=== PATIENT | male | born 1975 | race African-American/Black ===

== ENCOUNTER 2017-11-22 05:10 | Emergency (ER) | payer SELFPAY ==
[~2017-11-22] VITALS: Ht 170.2 cm; Wt 68.0 kg
[~2017-11-22 05:10] MED LIST: AMOX500C2 PO; NAPR-243 PO; PREDNISONE; TRM50T PO; VALA500T4 PO
[2017-11-22 05:15] VITALS: BP 141/109
--- NOTE | 2017-11-22 06:31 | ED Respiratory ---
General Chief Complaint: Chest Pain Stated Complaint: SOB Nursing Triage Note: pt brought in to er with friend with complaint of chest pain and sob. that started an hour ago. states he was drinking and smoking tonight. Source: patient, family (cousin) Exam Limitations: intoxication History of Present Illness Date Seen by Provider: Nov 22, 2017 Time Seen by Provider: 05:10 Initial Comments Patient presents to the ER by private conveyance with his cousin and a chief complaint that about an hour and a half ago he came home and his cousin's house was complaining of being short of breath having tingling in his face and hands and pain in his chest/upper belly. The patient denies any history of coronary artery disease in either himself or primary family. He does smoke cigarettes. He was evasive about answering how much he drinks but he says he did drink some liquor and at least a sixpack of beer tonight. Patient was becoming uncooperative with questioning as well as examination and just wanted lay on his left side. Patient's cousin became upset patient because he was not answering questions at all. This examiner asked the patient we could at least collect blood and urine and get an x-ray to help figure out what was wrong and as well as offer him some management of his symptoms and the patient refused to answer make eye contact. The patient's cousin became upset with the patient and insisted that he either cooperate with care or she was going to drag him out of the ER and take him to his mother and have her bring him back. The patient then ceased communicating and cooperating entirely so family member collected the patient's things and helped him up and proceeded to March him out of the ER. Allergies and Home Medications Allergies Coded Allergies: No Known Drug Allergies (Unverified Allergy, Mild, 12/10/08) No Known Allergies (Verified Allergy, Unknown, 11/23/06) Patient Home Medication List Home Medication List Reviewed: Yes Constitutional: see HPI (a complete review of systems was not able to be collected.) Past Ybyvexr-Eklcpi-Yhnuuv Hx Patient Social History Alcohol Use: Regular Use Alcohol Beverage of Choice: Beer, Whiskey Recreational Drug Use: No Smoking Status: Current Everyday Smoker Type Used: Cigarettes Recent Foreign Travel: No Contact w/Someone Who Travel: No Recent Infectious Disease Expo: No Reproductive System Hx Reproductive Disorders: No Sexually Transmitted Disease: No Physical Exam Vital Signs Vital Signs - First Documented 11/22/17 05:15 Temp 96.4 Pulse 89 Resp 20 B/P (MAP) 141/109 (120) Pulse Ox 100 O2 Delivery Room Air Capillary Refill : Less Than 3 Seconds General Appearance: WD/WN Eyes: Bilateral Eye Normal Inspection, Bilateral Eye PERRL, Bilateral Eye EOMI HEENT: pharynx normal (oropharynx is dry), other (erythematous and injected conjunctiva bilateral) Neck: non-tender, supple, normal inspection Respiratory: chest non-tender, lungs clear, normal breath sounds, no respiratory distress, no accessory muscle use Cardiovascular: normal peripheral pulses, regular rate, rhythm, no edema Gastrointestinal: normal bowel sounds, non tender, soft, no organomegaly Extremities: non-tender, normal inspection, normal capillary refill Neurologic/Psychiatric: alert, other (oriented to person and place; anxious affect;) Skin: normal color, warm/dry Progress/Results/Core Measures Suspected Sepsis Recent Fever Within 48 Hours: No Infection Criteria Present: None New/Unexplained Altered Menta: No Sepsis Screen: No Definite Risk Sepsis Diagnosis: SIRS Temperature:96.4 Pulse: 89 Respiratory Rate: 20 Blood Pressure 141 /109 Mean: 120 Results/Orders Vital Signs/I&O Vital Sign - Last 12Hours 11/22/17 05:15 Temp 96.4 Pulse 89 Resp 20 B/P (MAP) 141/109 (120) Pulse Ox 100 O2 Delivery Room Air Capillary Refill : Less Than 3 Seconds Blood Pressure Mean: 120 Departure Impression Impression: Primary Impression: Alcohol intoxication Qualified Codes: F10.929 - Alcohol use, unspecified with intoxication, unspecified Additional Impressions: Anxiety Shortness of breath Disposition: 07 AGAINST MEDICAL ADVICE Condition: Against Medical Advice Departure-Patient Inst. Decision time for Depature: 06:35 Referrals: SURESH BERNABE MD (PCP) Primary Care Physician Patient Instructions: Anxiety, Adult (DC) Add. Discharge Instructions: All discharge instructions reviewed with patient and/or family. Voiced understanding. DAVINA YANEZ Nov 22, 2017 06:31
== END 2017-11-22 05:25 | disposition left against medical advice (07) ==
LOC: EDUNIT# 05:10 → ER 05:11
DX: R06.02 Shortness of breath (principal); F10.129 Alcohol abuse with intoxication, unspecified; F41.9 Anxiety disorder, unspecified; F17.210 Nicotine dependence, cigarettes, uncomplicated
CPT/HCPCS: 99281

== ENCOUNTER 2017-11-22 05:54 | Emergency (ER) | payer SELFPAY ==
[~2017-11-22] VITALS: Ht 170.2 cm; Wt 68.0 kg
[2017-11-22] MEDS ORDERED: NS IV 1000 ML 1,000 ML IV SCH (06:18)
[2017-11-22 06:32] LABS: BILIRUBIN,URINE NEGATIVE (NEGATIVE); CLARITY,URINE CLEAR; COLOR,URINE YELLOW; GLUCOSE, URINE (UA) NEGATIVE (NEGATIVE); KETONES,URINE NEGATIVE (NEGATIVE); LEUKOCYTE ESTERASE ,URINE NEGATIVE (NEGATIVE); NITRITE,URINE NEGATIVE (NEGATIVE); PH,URINE 7 (5-9); PROTEIN,URINE NEGATIVE (NEGATIVE); UROBILINOGEN,URINE NORMAL (NORMAL)
[2017-11-22 06:34] LABS: HEMATOCRIT 45 % (40-54); HEMOGLOBIN 15.2 G/DL (13.3-17.7); LYMPHOCYTES % (AUTO) 56 % (12-44); MEAN CORPUSCULAR HEMOGLOBIN 30 PG (25-34); MEAN CORPUSCULAR HGB CONC 34 G/DL (32-36); MEAN CORPUSCULAR VOLUME 89 FL (80-99); NEUTROPHILS % (AUTO) 31 % (42-75); PLATELET COUNT 202 10^3/uL (130-400); RED BLOOD COUNT 5.03 10^6/uL (4.35-5.85); RED CELL DISTRIBUTION WIDTH 13.5 % (10.0-14.5); WHITE BLOOD COUNT 4.6 10^3/uL (4.3-11.0)
[2017-11-22 06:35] LABS: BASOPHILS % (AUTO) 0 % (0-10); EOSINOPHILS # (AUTO) 0.2 10^3/uL (0.0-0.3); EOSINOPHILS % (AUTO) 5 % (0-10); LYMPHOCYTES # (AUTO) 2.6 X 10^3 (1.0-4.0); MONOCYTES # (AUTO) 0.4 X 10^3 (0.0-1.0); MONOCYTES % (AUTO) 9 % (0-12); NEUTROPHILS # (AUTO) 1.4 X 10^3 (1.8-7.8)
[2017-11-22 06:38] LABS: BACTERIA,URINE NEGATIVE /HPF; SQUAMOUS EPITHELIAL CELL,UR RARE /HPF
--- NOTE | 2017-11-22 06:55 | ED General ---
General Chief Complaint: Respiratory Problems Stated Complaint: SOB Nursing Triage Note: Patient reports that he is having SOA. patient also reports that he is having a weird feeling that is not pain in his epigastric region. Patient states it is hard to describe. Patient reports to drinking alcohol but denies using or doing anything else. Nursing Sepsis Screen: No Definite Risk Source of Information: Patient, Old Records Exam Limitations: Intoxication History of Present Illness Date Seen by Provider: Nov 22, 2017 Time Seen by Provider: 06:08 Initial Comments This 42-year-old man presents to the emergency room with primary complaint of shortness of breath. He is kneeling on the floor upon my entry into the exam room. I inquired why he was on the floor and he stated position changes help him breathe better. He appears heavily intoxicated with watery erythematous eyes and dulled cognition. He is ambulatory. He had checked into the emergency room earlier in the evening for epigastric pain but left AGAINST MEDICAL ADVICE before he was completely evaluated. He had mentioned to nursing staff during the prior visit and on triage that he had epigastric pain, but his only complaint to me is shortness of breath. He admits to drinking a large quantity of alcohol but denies any drug use. He states that shortness of breath started about 6 hours ago. He is denying any pain at this time. Review of chart notes patient does have a history of drug and alcohol abuse including an overdose requiring intubation and ICU admission in 2006. Allergies and Home Medications Allergies Coded Allergies: No Known Drug Allergies (Unverified Allergy, Mild, 12/10/08) No Known Allergies (Verified Allergy, Unknown, 11/23/06) Patient Home Medication List Home Medication List Reviewed: Yes Constitutional: see HPI EENTM: no symptoms reported Respiratory: see HPI Cardiovascular: no symptoms reported Gastrointestinal: see HPI Genitourinary: no symptoms reported Musculoskeletal: no symptoms reported Skin: no symptoms reported Psychiatric/Neurological: See HPI Hematologic/Lymphatic: No Symptoms Reported Immunological/Allergic: no symptoms reported Past Upxfhfe-Fcabfy-Xhpvpt Hx Patient Social History Alcohol Use: Regular Use Recreational Drug Use: No Smoking Status: Never a Smoker Recent Foreign Travel: No Contact w/Someone Who Travel: No Recent Infectious Disease Expo: No Physical Abuse: No Sexual Abuse: No Surgeries History of Surgeries: No Respiratory History of Respiratory Disorde: No Cardiovascular History of Cardiac Disorders: No Neurological History of Neurological Disord: No Reproductive System Hx Reproductive Disorders: No Sexually Transmitted Disease: No Gastrointestinal History of Gastrointestinal Di: No Musculoskeletal History of Musculoskeletal Dis: No Endocrine History of Endocrine Disorders: No HEENT History of HEENT Disorders: No Cancer History of Cancer: No Psychosocial History of Psychiatric Problem: No Suicide Risk Score: 0 Integumentary History of Skin or Integumenta: No Blood Transfusions History of Blood Disorders: No Physical Exam Vital Signs Vital Signs - First Documented 11/22/17 11/22/17 06:30 07:35 Temp 98.2 Pulse 80 Resp 18 B/P (MAP) 142/102 (115) Pulse Ox 96 O2 Delivery Nasal Cannula O2 Flow Rate 2.00 Capillary Refill : Less Than 3 Seconds General Appearance: No Apparent Distress, WD/WN, Other (intoxicated) HEENT: PERRL/EOMI, Normal ENT Inspection, Moist Mucous Membranes, Other ( watery bloodshot eyes.) Neck: Normal Inspection Respiratory: Lungs Clear, Normal Breath Sounds, No Accessory Muscle Use, No Respiratory Distress Cardiovascular: Regular Rate, Rhythm, No Edema, No Murmur Gastrointestinal: Normal Bowel Sounds, Non Tender, Soft Extremity: Normal Inspection, No Pedal Edema Neurologic/Psychiatric: Alert, No Motor/Sensory Deficits, mat 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 Patient appears intoxicated) Skin: Normal Color, Warm/Dry Progress/Results/Core Measures Suspected Sepsis Recent Fever Within 48 Hours: No Infection Criteria Present: None New/Unexplained Altered Menta: No Sepsis Screen: No Definite Risk Sepsis Diagnosis: SIRS Temperature:98.2 Pulse: 80 Respiratory Rate: 18 Laboratory Tests 11/22/17 06:10: White Blood Count 4.6 Blood Pressure 142 /102 Mean: 115 Laboratory Tests 11/22/17 06:10: Creatinine 0.76, Platelet Count 202, Total Bilirubin 0.6 Results/Orders Lab Results Laboratory Tests Test 11/22/17 06:10 11/22/17 06:20 Range/Units White Blood Count 4.6 4.3-11.0 10^3/uL Red Blood Count 5.03 4.35-5.85 10^6/uL Hemoglobin 15.2 13.3-17.7 G/DL Hematocrit 45 40-54 % Mean Corpuscular Volume 89 80-99 FL Mean Corpuscular Hemoglobin 30 25-34 PG Mean Corpuscular Hemoglobin Concent 34 32-36 G/DL Red Cell Distribution Width 13.5 10.0-14.5 % Platelet Count 202 130-400 10^3/uL Mean Platelet Volume 9.0 7.4-10.4 FL Neutrophils (%) (Auto) 31 L 42-75 % Lymphocytes (%) (Auto) 56 H 12-44 % Monocytes (%) (Auto) 9 0-12 % Eosinophils (%) (Auto) 5 0-10 % Basophils (%) (Auto) 0 0-10 % Neutrophils # (Auto) 1.4 L 1.8-7.8 X 10^3 Lymphocytes # (Auto) 2.6 1.0-4.0 X 10^3 Monocytes # (Auto) 0.4 0.0-1.0 X 10^3 Eosinophils # (Auto) 0.2 0.0-0.3 10^3/uL Basophils # (Auto) 0.0 0.0-0.1 10^3/uL Sodium Level 143 135-145 MMOL/L Potassium Level 4.0 3.6-5.0 MMOL/L Chloride Level 104 98-107 MMOL/L Carbon Dioxide Level 24 21-32 MMOL/L Anion Gap 15 H 5-14 MMOL/L Blood Urea Nitrogen 9 7-18 MG/DL Creatinine 0.76 0.60-1.30 MG/DL Estimat Glomerular Filtration Rate > 60 BUN/Creatinine Ratio 12 Glucose Level 94 70-105 MG/DL Calcium Level 9.1 8.5-10.1 MG/DL Magnesium Level 2.4 1.8-2.4 MG/DL Total Bilirubin 0.6 0.1-1.0 MG/DL Aspartate Amino Transf (AST/SGOT) 50 H 5-34 U/L Alanine Aminotransferase (ALT/SGPT) 50 0-55 U/L Alkaline Phosphatase 88 40-136 U/L Troponin I < 0.30 <0.30 NG/ML Total Protein 7.8 6.4-8.2 GM/DL Albumin 4.6 H 3.2-4.5 GM/DL Lipase 68 8-78 U/L Serum Alcohol 351 *H <10 MG/DL Urine Color YELLOW Urine Clarity CLEAR Urine pH 7 5-9 Urine Specific Taylor 1.010 L 1.016-1.022 Urine Protein NEGATIVE NEGATIVE Urine Glucose (UA) NEGATIVE NEGATIVE Urine Ketones NEGATIVE NEGATIVE Urine Nitrite NEGATIVE NEGATIVE Urine Bilirubin NEGATIVE NEGATIVE Urine Urobilinogen NORMAL NORMAL MG/DL Urine Leukocyte Esterase NEGATIVE NEGATIVE Urine RBC (Auto) NEGATIVE NEGATIVE Urine RBC NONE /HPF Urine WBC NONE /HPF Urine Squamous Epithelial Cells RARE /HPF Urine Crystals NONE /LPF Urine Bacteria NEGATIVE /HPF Urine Casts NONE /LPF Urine Mucus NEGATIVE /LPF Urine Culture Indicated NO Urine Opiates Screen NEGATIVE NEGATIVE Urine Oxycodone Screen NEGATIVE NEGATIVE Urine Methadone Screen NEGATIVE NEGATIVE Urine Propoxyphene Screen NEGATIVE NEGATIVE Urine Barbiturates Screen NEGATIVE NEGATIVE Ur Tricyclic Antidepressants Screen NEGATIVE NEGATIVE Urine Phencyclidine Screen NEGATIVE NEGATIVE Urine Amphetamines Screen NEGATIVE NEGATIVE Urine Methamphetamines Screen NEGATIVE NEGATIVE Urine Benzodiazepines Screen NEGATIVE NEGATIVE Urine Cocaine Screen NEGATIVE NEGATIVE Urine Cannabinoids Screen NEGATIVE NEGATIVE My Orders Orders - GREG VERDUGO MD Alcohol (11/22/17 06:18) Cbc With Automated Diff (11/22/17 06:18) Comprehensive Metabolic Panel (11/22/17 06:18) Drug Screen Stat (Urine) (11/22/17 06:18) Lipase (11/22/17 06:18) Magnesium (11/22/17 06:18) Troponin I (11/22/17 06:18) Ua Culture If Indicated (11/22/17 06:18) Chest 1 View, Ap/Pa Only (11/22/17 06:18) Saline Lock/Iv-Start (11/22/17 06:18) Ns Iv 1000 Ml (Sodium Chloride 0.9%) (11/22/17 06:18) Ekg Tracing (11/22/17 14:32) Vital Signs/I&O Vital Sign - Last 12Hours 11/22/17 11/22/17 11/22/17 06:30 07:35 09:45 Temp 98.2 98.6 Pulse 80 90 Resp 18 18 B/P (MAP) 142/102 (115) 136/84 Pulse Ox 96 90 96 O2 Delivery Nasal Cannula Room Air O2 Flow Rate 2.00 Capillary Refill : Less Than 3 Seconds Blood Pressure Mean: 115 Progress Note #1: Time: 06:49 Progress Note Patient seen and examined. X-ray, EKG, and labs ordered. Liter of IV fluids is infusing. Progress Note #2: Progress Note Workup was relatively unremarkable except for the elevated blood alcohol level. Patient was allowed to sleep off his intoxication. When he was woken, his symptoms had resolved. He was independently and safely ambulatory. He was discharged home with family. He was given information for local substance abuse treatment programming. ECG Initial ECG Impression Date: Nov 22, 2017 Initial ECG Impression Time: 06:00 Initial ECG Rate: 77 Initial ECG Rhythm: Normal Sinus Initial ECG Intervals: Normal Initial ECG Impression: Normal Comment Normal sinus rhythm with no ST elevation or depression. No abnormal intervals or axis deviation. Diagnostic Imaging Diagonstic Imaging: Xray Plain Films/CT/US/NM/MRI: chest Comments Chest x-ray viewed by me. Report reviewed. See report below: NAME: YOHANA BASILIO [facility] REC#: [id number] PT STATUS: REG ER : 1975 PHYSICIAN: GREG VERDUGO MD ADMIT DATE: 11/22/17/ER Signed Date of Exam: 11/22/17 CHEST 1 VIEW, AP/PA ONLY INDICATION: ER patient with shortness of breath. FINDINGS: Portable chest. Lungs are clear. Heart is not enlarged. There is no pulmonary edema or hilar adenopathy. No pneumothorax or pleural effusions. No bony abnormalities. IMPRESSION: Normal portable chest. Dictated by: Dictated on workstation # [id number] Dict: 11/22/17730 Trans: 11/22/17926 Interpreted by: ONESIMO CARDONA MD Electronically signed by: ONESIMO CARDONA MD 11/22/17926 Departure Impression Impression: Primary Impression: Alcohol intoxication Qualified Codes: F10.929 - Alcohol use, unspecified with intoxication, unspecified Additional Impressions: Dyspnea Qualified Codes: R06.02 - Shortness of breath Alcohol dependence Qualified Codes: F10.29 - Alcohol dependence with unspecified alcohol-induced disorder Disposition: 01 HOME, SELF-CARE Condition: Improved Departure-Patient Inst. Decision time for Depature: 09:38 Referrals: NO,LOCAL PHYSICIAN (PCP/Family) Primary Care Physician Patient Instructions: ALCOHOL AND SUBSTANCE ABUSE Add. Discharge Instructions: Follow-up with your primary care provider as soon as possible. Work toward alcohol cessation but avoid abruptly stopping alcohol completely as this may cause life-threatening withdrawals. Please work with your primary care provider or a beef specialist while you are trying to quit. Return to the ER if symptoms are worsening again. For upper abdominal pain, you may try an antacid such as Pepcid (famotidine) or omeprazole. All discharge instructions reviewed with patient and/or family. Voiced understanding. GREG VERDUGO MD Nov 22, 2017 06:55
[2017-11-22 06:58] LABS: AMPHETAMINE SCREEN, URINE NEGATIVE (NEGATIVE); BARBITURATE SCREEN URINE NEGATIVE (NEGATIVE); BENZODIAZEPINES SCREEN URINE NEGATIVE (NEGATIVE); CANNABINOID SCREEN, URINE NEGATIVE (NEGATIVE); COCAINE SCREEN URINE NEGATIVE (NEGATIVE); METHADONE STAT NEGATIVE (NEGATIVE); METHAMPHETAMINE SCREEN URINE S NEGATIVE (NEGATIVE); OPIATE SCREEN URINE NEGATIVE (NEGATIVE); TRICYCLIC ANTIDEPRESSANTS SCRE NEGATIVE (NEGATIVE)
[2017-11-22 06:59] LABS: OXYCODONE STAT NEGATIVE (NEGATIVE); PROPOXYPHENE STAT NEGATIVE (NEGATIVE)
[2017-11-22 07:01] LABS: ALANINE AMINOTRANSFERASE 50 U/L (0-55); ALBUMIN 4.6 GM/DL (3.2-4.5); ALKALINE PHOSPHATASE 88 U/L (40-136); BILIRUBIN,TOTAL 0.6 MG/DL (0.1-1.0); BUN/CREATININE RATIO 12; CALCIUM 9.1 MG/DL (8.5-10.1); CARBON DIOXIDE 24 MMOL/L (21-32); CHLORIDE 104 MMOL/L (98-107); CREATININE SERUM 0.76 MG/DL (0.60-1.30); GFR ESTIMATED > 60; GLUCOSE 94 MG/DL (70-105); LIPASE 68 U/L (8-78); MAGNESIUM 2.4 MG/DL (1.8-2.4); SODIUM 143 MMOL/L (135-145); TOTAL PROTEIN 7.8 GM/DL (6.4-8.2)
--- NOTE | 2017-11-22 07:39 | Diagnostic Imaging Report ---
INDICATION: ER patient with shortness of breath. FINDINGS: Portable chest. Lungs are clear. Heart is not enlarged. There is no pulmonary edema or hilar adenopathy. No pneumothorax or pleural effusions. No bony abnormalities. IMPRESSION: Normal portable chest. Dictated by: Dictated on workstation # [id number]
[2017-11-22 09:45] VITALS: BP 136/84
== END 2017-11-22 09:45 | disposition home or self-care (01) ==
LOC: EDUNIT# 05:54 → ER 05:56
DX: F10.20 Alcohol dependence, uncomplicated (principal); R06.02 Shortness of breath
CPT/HCPCS: 36415; 71045; 80053; 80306; 80320; 81000; 83690; 83735; 84484; 85025; 93005; 96360

== ENCOUNTER 2018-10-06 23:25 | Emergency (ER) | payer SELFPAY ==
[~2018-10-06] VITALS: Ht 170.2 cm; Wt 68.0 kg
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
[2018-10-07] MEDS ORDERED: RX-TRIMETH/SULFA. 160-800 MG (BACTRIM DS) TAB PPK#2 PO STA (01:32)
[2018-10-07] MEDS ORDERED: PRD10T PO (01:40)
[2018-10-07] MEDS ORDERED: SULF1TAB35 PO (01:40)
--- NOTE | 2018-10-07 01:40 | ED Integumentary General ---
General Chief Complaint: Bite-Animal/Human/Insect Stated Complaint: R LEG PAIN,POSS INSECT BITE Nursing Triage Note: pt c/o possible spider bite on right thigh, onset monday and noticed increased pain and swelling on monday. Increasing pain and swelling tonight. Source: patient History of Present Illness Date Seen by Provider: Oct 07, 2018 Time Seen by Provider: 01:25 Initial Comments PT ARRIVES VIA POV STATES HE NOTICED A SPOT ON HIS RIGHT THIGH ON Monday10/02/18--STATES IT LOOKED LIKE AN INFECTED HAIR SINCE THEN, IT HAS BECOME MORE PAINFUL AND IS SPREADING, NOW HAVING PAIN IN RIGHT GROIN AREA NO FEVER NO DRAINAGE NO STREAKS NO KNOWN INJURY AND DID NOT SEE OR FEEL ANYTHING BITE / STING HIM NO HISTORY OF SIMILAR. HAS NOT TAKEN ANYTHING FOR SYMPTOMS LAST TETANUS > 7 YEARS AGO. PCP: JESSICA-FERN, MAI GAMBINO Allergies and Home Medications Allergies Coded Allergies: No Known Drug Allergies (Unverified Allergy, Mild, 12/10/08) No Known Allergies (Verified Allergy, Unknown, 11/23/06) Home Medications Prednisone 10 Mg Tab, 40 MG PO DAILY Prescribed by: NEDA FERNANDEZ on 10/07/18139 Sulfamethoxazole/Trimethoprim 1 Each Tablet, 1 EACH PO BID Prescribed by: NEDA FERNANDEZ on 10/07/18139 Patient Home Medication List Home Medication List Reviewed: Yes Review of Systems Review of Systems Constitutional: no symptoms reported Respiratory: no symptoms reported Cardiovascular: no symptoms reported Musculoskeletal: see HPI Skin: see HPI Psychiatric/Neurological: No Symptoms Reported Endocrine: No Symptoms Reported Hematologic/Lymphatic: No Symptoms Reported Past Xdyvnln-Vbigne-Mizdqx Hx Patient Social History Alcohol Use: Occasionally Uses (HISTORY OF ABUSE AND HAS BEEN IN ALCOHOL ABUSE TREATMENT IN THE PAST. ) Recreational Drug Use: Yes (PT OVERDOSED ON XANAX AND ALSO TESTED + FOR PCP IN PAST) Smoking Status: Current Everyday Smoker (1/2 PPD) Type Used: Cigarettes (1/2 PPD) Recent Foreign Travel: No Contact w/Someone Who Travel: No Recent Infectious Disease Expo: No Past Medical History Surgeries: No Respiratory: No (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) Cardiac: No Neurological: No Reproductive Disorders: No Sexually Transmitted Disease: No Gastrointestinal: No Musculoskeletal: No Endocrine: No HEENT: No Cancer: No Psychosocial: No Integumentary: No Blood Disorders: No Physical Exam Vital Signs Vital Signs - First Documented 10/07/18 00:42 Temp 98.1 Pulse 93 Resp 14 B/P (MAP) 143/94 (110) Pulse Ox 95 O2 Delivery Room Air Capillary Refill : Less Than 3 Seconds General Appearance: WD/WN, no apparent distress Extremities: normal range of motion, normal capillary refill, other (RIGHT ANTERIOR/LATERAL THIGH WITH CENTRAL ERYTHEMATOUS PAPULE WITH SLIGHT SCAB FORMATION. 13 X 16 CM AREA OF SURROUNDING ERYTHEMA AND INDURATION. NO AREAS OF FLUCTUANCE. NO DRAINAGE, NO STREAKS. DOES HAVE SOME SUPERFICIAL PHLEBITIS VS INFLAMED LYMPH NODE CHAIN FROM MEDIAL RIGHT THIGH TO RIGHT GROIN. 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, no motor/sensory deficits, alert, normal mood/affect, oriented x 3 Skin: normal color (PT IS BLACK), warm/dry, other ( ABOVE) Progress/Results/Core Measures Results/Orders My Orders Orders - NEDA FERNANDEZ DO Clindamycin Injection (Cleocin Injection (10/07/18 01:45) Ketorolac Injection (Toradol Injection) (10/07/18 01:45) Dipht,Pertuss(Acell),Tet Adult (Boostrix (10/07/18 01:45) Rx-Trimeth/Sulfameth Ds Tab (Rx-Bactrim/ (10/07/18 01:32) Clindamycin Injection (Cleocin Injection (10/07/18 03:38) Vital Signs/I&O 10/07/18 00:42 Temp 98.1 Pulse 93 Resp 14 B/P (MAP) 143/94 (110) Pulse Ox 95 O2 Delivery Room Air Blood Pressure Mean: 110 Departure Impression Primary Impression: Cellulitis of right thigh Additional Impression: Odilkwuvnf-sjyebgdjp-qvqsyst (DPT) vaccination administered at current visit Disposition: HOME, SELF-CARE Condition: Stable Departure-Patient Inst. Referrals: [facility] (PCP/Family) Primary Care Physician Patient Instructions: Cellulitis (Skin Infection), Adult (DC), Diphtheria and Tetanus Toxoids, and Acellular Pertussis Vaccine Add. Discharge Instructions: TYLENOL AND MOTRIN NEEDED FOR PAIN FOLLOW UP WITH [facility] IN 2-3 DAYS FOR FURTHER CARE All discharge instructions reviewed with patient and/or family. Voiced understanding. Scripts Prednisone (Prednisone) 10 Mg Tab 40 MG PO DAILY, #12 TAB Prov: NEDA FERNANDEZ DO 10/07/18 Sulfamethoxazole/Trimethoprim (Bactrim Ds Tablet) 1 Each Tablet 1 EACH PO BID, #20 TAB Prov: NEDA FERNANDEZ DO 10/07/18 NEDA FERNANDEZ DO Oct 07, 2018 01:40
[2018-10-07] MEDS ORDERED: TETANUS,DIPTH,PERTUSS P/F (BOOSTRIX) 0.5 ML VIAL IM ONE (01:45)
[2018-10-07] MEDS ORDERED: KETOROLAC 60 MG/2 ML VIAL IM ONE (01:45)
[2018-10-07] MEDS ORDERED: CLINDAMYCIN 600 MG/4ML (CLEOCIN) VIAL IM ONE (01:45)
[2018-10-07] MEDS ORDERED: CLINDAMYCIN 300 MG/2ML (CLEOCIN) VIAL ONE (03:38)
[2018-10-07] MEDS ORDERED: RX-TRIMETH/SULFA. 160-800 MG (BACTRIM DS) TAB PPK#2 PO ONE (03:54)
[2018-10-07 04:00] VITALS: BP 115/94
== END 2018-10-07 04:00 | disposition home or self-care (01) ==
LOC: EDUNIT# 23:25 → ER 23:27
DX: L03.115 Cellulitis of right lower limb (principal); F17.210 Nicotine dependence, cigarettes, uncomplicated; Z79.52 Long term (current) use of systemic steroids; Z23 Encounter for immunization
CPT/HCPCS: 90715; 99284

== ENCOUNTER 2020-12-08 23:38 | Emergency (ER) | payer SELFPAY ==
[~2020-12-08] VITALS: Ht 177.8 cm; Wt 65.3 kg
[~2020-12-08 23:38] MED LIST changes: +PRD10T PO; +SULF1TAB35 PO
--- NOTE | 2020-12-08 23:54 | ED Integumentary General ---
General Chief Complaint: Bite-Animal/Human/Insect Stated Complaint: DOG BITE Source: patient Exam Limitations: no limitations History of Present Illness Date Seen by Provider: Dec 08, 2020 Time Seen by Provider: 23:43 Initial Comments Patient to the ER by private conveyance with chief complaint that he broke up his dogs who were fighting with each other and one of them bit him on his left forearm. They are up-to-date on their vaccinations. He has not had a tetanus vaccine in greater than 5 years. He can still move his left arm but is having a little tingling in the dorsum of his fingertips. He is not on blood thinners. Allergies and Home Medications Allergies Coded Allergies: No Known Drug Allergies (Unverified Allergy, Mild, 12/10/08) No Known Allergies (Verified Allergy, Unknown, 11/23/06) Home Medications Prednisone 10 Mg Tab, 40 MG PO DAILY Prescribed by: NEDA FERNANDEZ on 10/07/18139 Sulfamethoxazole/Trimethoprim 1 Each Tablet, 1 EACH PO BID Prescribed by: NEDA FERNANDEZ on 10/07/18139 Patient Home Medication List Home Medication List Reviewed: Yes Review of Systems Review of Systems Constitutional: No chills, No diaphoresis, No fever EENTM: No ear discharge, No hearing loss Respiratory: No cough, No short of breath Cardiovascular: No chest pain, No edema Gastrointestinal: No abdominal pain, No nausea Genitourinary: No discharge, No dysuria All Other Systems Reviewed Negative Unless Noted: Yes Past Rtbdcub-Xmsgnn-Sfwqfj Hx Patient Social History Alcohol Use: Regular Use Alcohol Beverage of Choice: Beer, Whiskey Smoking Status: Current Everyday Smoker Type Used: Cigarettes Past Medical History Surgeries: No Respiratory: No (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) Cardiac: No Neurological: No Reproductive Disorders: No Sexually Transmitted Disease: No Gastrointestinal: No Musculoskeletal: No Endocrine: No HEENT: No Cancer: No Psychosocial: No Integumentary: No Blood Disorders: No Physical Exam Vital Signs Capillary Refill : General Appearance: WD/WN, mild distress HEENT: PERRL/EOMI, pharynx normal Neck: full range of motion, normal inspection Cardiovascular: normal peripheral pulses, regular rate, rhythm Respiratory: no respiratory distress, no accessory muscle use Extremities: other (Movement of all 5 digits and wrist are intact fully on the left arm.) Neurologic/Psychiatric: no motor/sensory deficits, alert, normal mood/affect, oriented x 3 Skin: other (Multiple small punctate wounds across his left forearm consistent with dog bite.) Progress/Results/Core Measures Results/Orders My Orders Orders - DAVINA YANEZt,Pertphoenix(Acell),Tet Adult (Boostrix (12/09/20 00:00) Forearm, Left, 2 Views (12/09/20 00:01) Medications Given in ED Current Medications Medications Dose Ordered Sig/Daniel Route Start Time Stop Time Status Last Admin Dose Admin Diphtheria/ Tetanus/Acell Pertussis 0.5 ml ONCE ONCE IM 12/09/20 00:00 12/09/20 00:01 DC 12/08/20 23:58 0.5 ML Progress Progress Note : Time: 00:16 Progress Note His tendons and neurologic status are intact. We have started soaking the wound and chlorhexidine and sterile saline and then will flush the wound and put him on antibiotics. We have encouraged him not to close the wounds or packed them with Vaseline or other similar ointment. Follow-up for wound recheck with his primary care doctor in 3 to 5 days. We will give him a tetanus vaccine. Since the dogs belong to him and he states they are up-to-date on their rabies vaccination and he can continue to watch them for the next 2 weeks we have encouraged him to look for signs of unusual behavior and report to animal control or return immediately to the ER for rabies prophylaxis if that occurs. Diagnostic Imaging Diagonstic Imaging: Xray Plain Films/CT/US/NM/MRI: forearm (Left) Comments No evidence of retained foreign body in the soft tissue shadows. There is an old fragment at the distal head of the radius that could represent old fracture but no acute osseous abnormality. Reviewed: Reviewed by Me Departure Impression Primary Impression: Dog bite Qualified Codes: W54.0XXA - Bitten by dog, initial encounter Disposition: 01 HOME, SELF-CARE Condition: Stable Departure-Patient Inst. Decision time for Depature: 00:17 Referrals: [facility] (PCP/Family) Primary Care Physician Patient Instructions: Animal Bites (DC) Add. Discharge Instructions: You need to observe your dogs for the next 2 weeks. If they are having any unusual behavior such as unwarranted aggressive behavior or other curious behavior then you need to return promptly to the nearest ER for rabies prophylaxis. Animal control can help you sort her dogs out if you have any questions. 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 Augmentin 1 capsule twice daily for the next 7 days to prevent infection. Follow-up with your personal primary care doctor in 3 to 5 days to have your arm reexamined for signs of worsening infection. Clean the wounds with regular soap and water. Do not use hydrogen peroxide, alcohol, iodine or chlorhexidine as this will delay wound healing. Keep the wounds either open to air or dressed with light gauze dressing to keep soiled out of them. Do not pack the wounds with triple antibiotic ointment, Vaseline or other ointments. Allow them to drain onto a dressing. Change the dressing daily or more frequently if it becomes soiled. Tylenol 1000 mg every 8 hours as necessary for pain. Ibuprofen 800 mg every 8 hours as necessary for pain. If you have severe pain then you may take 1/2 to 1 tablet of hydrocodone every 6 hours as necessary to stay functional. All discharge instructions reviewed with patient and/or family. Voiced understanding. Scripts Amoxicillin/Potassium Clav (Augmentin 875-125 Tablet) 1 Each Tablet 1 EACH PO BID for 7 Days, #14 TAB 0 Refills Prov: DAVINA YANEZ 12/09/20 Hydrocodone/Acetaminophen (Hydrocodone-Acetamin 5-325 mg) 1 Each Tablet 0.5-1 TAB PO Q6H PRN for PAIN-MODERATE (5-7), #10 TAB 0 Refills Prov: DAVINA YANEZ 12/09/20 DAVINA YANEZ Dec 08, 2020 23:54
[2020-12-09] MEDS ORDERED: TETANUS,DIPTH,PERTUSS P/F (BOOSTRIX) 0.5 ML VIAL IM ONE
[2020-12-09] MEDS ORDERED: AUGMENTIN 875 MG TAB (AMOXICILLIN/CLAVULANATE) ONE (00:29)
[2020-12-09] MEDS ORDERED: AMOX-358 PO (00:30)
[2020-12-09] MEDS ORDERED: ACHD5005 PO (00:30)
[2020-12-09] MEDS ORDERED: RX-HYDROCODONE/APAP 5/325 MG #4 TAB PK PO PRN (00:30)
[2020-12-09 00:45] VITALS: BP 138/91
--- NOTE | 2020-12-09 07:27 | Diagnostic Imaging Report ---
INDICATION: Laceration to the mid left forearm. FINDINGS: Two views of the left forearm demonstrate small soft tissue laceration. No foreign body is present. There is an osteophyte or old avulsion fracture off the tip of the distal radius. IMPRESSION: There is small laceration with no acute osseous abnormalities or foreign body. Dictated by: Dictated on workstation # [id number]
[2020-12-09] MEDS ORDERED: AUGMENTIN 875 MG TAB (AMOXICILLIN/CLAVULANATE) PO SCH (08:00)
== END 2020-12-09 00:45 | disposition home or self-care (01) ==
LOC: EDUNIT# 23:38 → ER 23:41
DX: S51.852A Open bite of left forearm, initial encounter (principal); F17.210 Nicotine dependence, cigarettes, uncomplicated; Z23 Encounter for immunization; Z79.52 Long term (current) use of systemic steroids; W54.0XXA Bitten by dog, initial encounter
CPT/HCPCS: 73090; 90715

== ENCOUNTER 2021-06-20 13:41 | Emergency (ER) | payer SELFPAY ==
[~2021-06-20] VITALS: Ht 170.2 cm; Wt 65.8 kg
[~2021-06-20 13:41] MED LIST changes: +ACHD5005 PO; +AMOX-358 PO; -SULF1TAB35 PO; +SULF1TAB38 PO
[2021-06-20 13:50] VITALS: BP 170/49
--- NOTE | 2021-06-20 14:01 | ED Head Injury ---
General Stated Complaint: FALL/FACIAL INJURY Source: patient Exam Limitations: no limitations (SHERITA CALDWELL APRN) History of Present Illness Date Seen by Provider: Jun 20, 2021 Time Seen by Provider: 13:58 Initial Comments To ER with reports that he tripped and fell yesterday while walking down the stairs while inebriated. He did not lose consciousness but he does have some abrasions to the nose and a persistent left-sided frontal headache. No nausea or vomiting. Occurred: just prior to arrival Severity: moderate Location: frontal Loss of Consciousness: no loss of consciousness Associated Systoms: Denies Symptoms (SHERITA CALDWELL APRN) Allergies and Home Medications Allergies Coded Allergies: No Known Drug Allergies (Unverified Allergy, Mild, 12/10/08) No Known Allergies (Verified Allergy, Unknown, 11/23/06) Patient Home Medication List Home Medication List Reviewed: Yes (Well my read) (SHERITA CALDWELL APRN) Amoxicillin/Potassium Clav (Augmentin 875-125 Tablet) 1 Each Tablet, 1 EACH PO BID Prescribed by: DAVINA YANEZ on 12/09/20 003 Hydrocodone/Acetaminophen (Hydrocodone-Acetamin 5-325 mg) 1 Each Tablet, 0.5-1 TAB PO Q6H PRN for PAIN-MODERATE (5-7) Prescribed by: DAVINA YANEZ on 12/09/20 003 Prednisone (Prednisone) 10 Mg Tab, 40 MG PO DAILY Prescribed by: NEDA FERNANDEZ on 10/07/18 0140 Sulfamethoxazole/Trimethoprim (Bactrim Ds Tablet) 1 Each Tablet, 1 EACH PO BID Prescribed by: NEDA FERNANDEZ on 10/07/18 014 [Prednisone] , (Reported) Entered as Reported by: JAVON DANIEL on 02/22/12 1331 Review of Systems Review of Systems Constitutional: see HPI Eyes: No Symptoms Reported Ears, Nose, Mouth, Throat: no symptoms reported Respiratory: no symptoms reported Cardiovascular: no symptoms reported Genitourinary: no symptoms reported Musculoskeletal: no symptoms reported Skin: no symptoms reported Psychiatric/Neurological: No Symptoms Reported Endocrine: No Symptoms Reported Hematologic/Lymphatic: No Symptoms Reported (SHERITA CALDWELL APRN) Past Jxpcdeg-Mglekl-Pbtcle Hx Seasonal Allergies Seasonal Allergies: No (SHERITA CALDWELL APRN) Past Medical History Surgeries: No Respiratory: No (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 oz. 68.911508zl; 20.00 BMI Method:Stated General Appearance: WD/WN, no apparent distress HEENT: PERRL/EOMI, normal ENT inspection, other (No visible dental injury though tooth #10 is tender to percussion.) Neck: non-tender, full range of motion Respiratory: lungs clear, normal breath sounds, no respiratory distress, no accessory muscle use Gastrointestinal: normal bowel sounds, non tender Extremities: normal range of motion, non-tender Crainal Nerves: normal hearing, normal speech, PERRL Motor/Sensory: no motor deficit, no sensory deficit Skin: normal color, warm/dry (SHERITA CALDWELL APRN) [place] Coma Score Best Eye Response: (4) Open Spontaneously Best Verbal Response: (5) Oriented Best Motor Response: (6) Obeys Commands Sana Total: 15 (SHERITA CALDWELL APRN) Departure Impression Primary Impression: Fall Additional Impression: Facial injury Disposition: HOME, SELF-CARE Condition: Stable Departure-Patient Inst. Decision time for Depature: 14:00 (SHERITA CALDWELL APRN) Referrals: [facility] [place] Primary Care Physician Patient Instructions: NO INSTRUCTIONS GIVEN ATTENDING PHYSICIAN NOTE: I was physically present as attending physician in the emergency department during the care of this patient, but I was not directly involved in the decision making or delivery of care for this patient. (GREG VERDUGO MD) SHERITA CALDWELL APRN Jun 20, 2021 14:01 GREG VERDUGO MD Jun 22, 2021 07:21
--- NOTE | 2021-06-20 14:45 | Diagnostic Imaging Report ---
PROCEDURE: CT head, face, and cervical spine without contrast. TECHNIQUE: Multiple contiguous axial images were obtained through the head, neck, and facial bones without the use of intravenous contrast. Sagittal and coronal reformations through the cervical spine and facial bones were also performed. Auto Exposure Controls were utilized during the CT exam to meet ALARA standards for radiation dose reduction. Date: June 20, 2021. Indication: 45-year-old male, fall. Head, face, neck pain. Comparison: None. Findings: There is mucosal thickening of the right maxillary sinus. There is nonspecific partial opacification in the right frontal sinus. There is no air-fluid level in the paranasal sinuses. The temporomandibular joints are normally aligned. The mandible is intact. There is no identified displaced nasal bone fracture. There is deviation of the bony nasal septum to the left of midline. There is no identified acute maxillofacial bone fracture. The globes are grossly intact. There is no retro-orbital hematoma. The ventricles and additional CSF spaces are normal in size and configuration for patient age. There is no abnormal extra-axial fluid collection. There is no evidence of acute intracranial hemorrhage. There is no mass effect or midline shift. There is no identified facet joint subluxation or dislocation. There are facet degenerative changes of the cervical spine. There are multilevel disc degenerative changes of the cervical spine. There is no asymmetric widening of the cervical disc spaces. There is no prominent prevertebral soft tissue swelling. There is no identified acute fracture of the cervical spine. The visualized portions of the lung apices are clear. Impression: 1. No identified acute maxillofacial bone fracture. 2. No identified acute intracranial abnormality. 3. No identified acute fracture of the cervical spine. Dictated by: Dictated on workstation # [id number]
== END 2021-06-20 14:55 | disposition home or self-care (01) ==
LOC: EDUNIT# 13:41 → ER 13:43
DX: S00.31XA Abrasion of nose, initial encounter (principal); R40.2410 Glasgow coma scale score 13-15, unspecified time; Z79.52 Long term (current) use of systemic steroids; W01.0XXA Fall on same level from slipping, tripping and stumbling without subsequent striking against object, initial encounter
CPT/HCPCS: 70450; 70486; 72125